=== PATIENT | male | born 1965 | race Caucasian/White ===

== ENCOUNTER 2019-01-08 08:35 | Emergency (ER) | payer BC ==
[~2019-01-08] VITALS: Ht 190.5 cm; Wt 107.5 kg
[2019-01-08 08:39] VITALS: TEMP 97.9
[2019-01-08] MEDS ORDERED: PRILOSEC 20MG20 MG PO (08:47)
[2019-01-08 09:27] LABS: ALANINE AMINOTRANSFERASE 50 U/L (21-72); ALBUMIN 4.5 gm/dL (3.5-5.0); ALKALINE PHOSPHATASE 54 U/L (50-136); ANION GAP 9 mmol/L (7-16); AST,SGOT 30 U/L (15-37); BASO % 0.6 % (0.0-2.0); BILIRUBIN,TOTAL 0.6 mg/dL (0.0-1.0); BLOOD UREA NITROGEN 18 mg/dL (9-20); CALCIUM 9.7 mg/dL (8.4-10.2); CARBON DIOXIDE 25 mmol/L (22-30); CHLORIDE 106 mmol/L (98-107); CREATININE, serum 1.24 mg/dL (0.66-1.25); EOS # 0.2 (0.0-0.7); EOS % 3.3 % (0-4.0); GLUCOSE 106 mg/dL (74-106); GRAN # 3.3 (1.4-6.5); GRAN % 52.6 % (42.2-75.2); HEMATOCRIT 45.7 % (42.0-52.0); HEMOGLOBIN 15.5 g/dl (13.5-18.0); LYMPH # 2.3 (1.2-3.4); LYMPH % 36.3 % (20.0-51.0); MEAN CELL VOLUME 87 fl (80.0-100.0); MEAN CORPUSCULAR HEMOGLOBIN 30 pg (27.0-31.0); MEAN CORPUSCULAR HGB CONC 34 g/dl (33.0-37.0); MEAN PLATELET VOLUME 11.5 fl (7.4-10.4); MONO # 0.4 (0.1-0.6); PLATELET COUNT 202 K/mm3 (130-400); POTASSIUM 4.5 mmol/L (3.4-5.0); RED BLOOD COUNT 5.26 M/mm3 (4.20-5.60); REDCELL DISTRIBUTION WIDTH-CV 12.2 % (11.5-14.5); SODIUM 141 mmol/L (137-145); TOTAL PROTEIN 7.4 gm/dL (6.4-8.2)
[2019-01-08 09:53] LABS: TROPONIN-I < 0.012 ng/mL (0.000-0.035)
[2019-01-08 12:28] VITALS: BP 127/80; PULSE 67
== END 2019-01-08 12:30 | disposition home or self-care (01) ==
LOC: COL.ER 08:35
PROVIDERS: Nurse Practitioner
DX: M25.512 Pain in left shoulder (principal); R07.89 Other chest pain; K21.9 Gastro-esophageal reflux disease without esophagitis; Z88.5 Allergy status to narcotic agent